=== PATIENT | female | born 1940 | race Caucasian/White ===

== ENCOUNTER 2017-03-14 07:17 | Emergency (ER) | payer OTHER ==
[~2017-03-14] VITALS: Ht 160 cm; Wt 89.0 kg
[~2017-03-14 07:17] MED LIST: ALBU0.63 NEB; ALBU6.7H INH; AMLO10TA2 PO; ATOR40TA16 PO; CALC0.25 PO; CAPT100T PO; CINN500C PO; FERR325T PO; FLUO40CA PO; FURO20TA PO; GABA300C5 PO; IPRAAER INH; LABE200T2 PO; LANTUS2P INJ; LOPE2CAP PO; META800T81 PO; NOVOLOGP2 SQ; PANT40TA3 PO; SPIRCAP INH; ULTR50TA5 PO; [UNRECOGNIZED DRUG - CODE]
[2017-03-14 07:19] VITALS: BP 212/87; PULSE 76; RESP 24; TEMP 98.5; O2SAT 89
--- NOTE | 2017-03-14 07:58 | PD ---
HPI Chief Complaint: GI Complaint Time Seen by Provider: 07:50 Travel History International Travel<30 days: No Contact w/Intl Traveler<30days: No Traveled to known affect area: No History of Present Illness HPI Cyst 77-year-old woman presents to the emergency department cough cold symptoms , chest congestion, and some loose stools. She is a history of COPD and chronic bronchitis. She reports 3 days ago she started feeling poorly with increased nonproductive cough but with increased chest congestion. No significant fevers. She also started having soft stools with a little bit of incontinence with coughing. She otherwise had been feeling generally well and healthy. Review of systems positive for increased shortness of breath, as well as her some increased chest pain occasionally over the past 1 to days that she attributes to her forceful cough. No other complaints. History Past Medical History Narrative Medical Hypertension Diabetes Hyperlipidemia Asthma/COPD GERD History of right breast cancer, status post lumpectomy, no radiation CKD, reportedly stage IV Neuropathy Tetanus Vaccination: < 5 Years Influenza Vaccination: Yes Social History Alcohol Use: No Tobacco Use: No Allergies-Medications (Allergen,Severity, Reaction): Coded Allergies: No Known Allergies (Verified , 03/14/17) Reported Meds & Prescriptions Reported Meds & Active Scripts Active Mucinex DM Maximum Strength (Dextromethorphan-Guaifenesin ER 12 HR) 60-1,200 Mg Tab 1 Tab PO BID PRN Azithromycin 250 Mg Tab 250 Mg PO DAILY 4 Days Deltasone (Prednisone) 20 Mg Tab 40 Mg PO DAILY 10 Days Reported Spiriva Handihaler (Tiotropium Inh) 18 Mcg Cap 18 Mcg INH DAILY 1 capsule = 18 mcg Proair Hfa 8.5 GM Inh (Albuterol Sulfate) 90 Mcg/Act Aer 1 Puff INH Q4H PRN 108 mcg/actuation Loperamide (Loperamide HCl) 2 Mg Cap 2 Mg PO DIRECTED PRN One capsule after each loose stool. Not to exceed 8 capsules per day. Cinnamon 500 Mg Cap 1,000 Mg PO DAILY Once Daily (Multiple Vitamin) 1 Tab Tab Albuterol Neb (Albuterol Sulfate) 0.63 Mg/3 Ml Neb 0.083 Mg NEB Q4H PRN Combivent Respimat Inh (Ipratropium-Albuterol Inh) 20-100 Long-Term/Act Aero 1 Puff INH QID Proventil Hfa 6.7 GM Inh (Albuterol Sulfate) 90 Mcg/Act Aer 3 Puff INH Q6H PRN Calcitriol 0.25 Mcg Cap 0.25 Mcg PO HS Ferrous Sulfate 325 Mg Tab 325 Mg PO DAILY Fluoxetine (Fluoxetine HCl) 40 Mg Cap 40 Cap PO DAILY Gabapentin 300 Mg Cap 300 Mg PO TID Pantoprazole (Pantoprazole Sodium) 40 Mg Tab 40 Mg PO DAILY Atorvastatin (Atorvastatin Calcium) 40 Mg Tab 40 Mg PO HS Novolog Inj (Insulin Aspart) 1,000 Unit/10 Ml Vial 0 SQ DIRECTED Sliding Scale as directed. Lantus Inj (Insulin Glargine) 100 Unit/Ml Inj 47 Units INJ HS Labetalol (Labetalol HCl) 200 Mg Tab 200 Mg PO BID Captopril 100 Mg Tab 100 Mg PO TIDAC Take 1 hr before meals Amlodipine (Amlodipine Besylate) 10 Mg Tab 10 Mg PO DAILY Review of Systems Except as stated in HPI: all other systems reviewed are Neg Physical Exam Narrative GENERAL: Well-appearing 77-year-old woman, no acute distress. SKIN: Focused skin assessment warm/dry. HEAD: Atraumatic. Normocephalic. CARDIOVASCULAR: Regular rate and rhythm. No murmur appreciated. RESPIRATORY: No accessory muscle use. Clear to auscultation. Breath sounds equal bilaterally. GASTROINTESTINAL: Abdomen soft, non-tender, nondistended. Hepatic and splenic margins not palpable. MUSCULOSKELETAL: No obvious deformities. No edema. NEUROLOGICAL: Awake and alert. No obvious cranial nerve deficits. Motor grossly within normal limits. Normal speech. Data Data Last Documented VS Vital Signs Date Time Temp Pulse Resp B/P Pulse Ox O2 Delivery O2 Flow Rate FiO2 03/14/17 09:29 95 Room Air 03/14/17 08:57 70 20 209/93 03/14/17 08:04 21 03/14/17 07:19 98.5 Orders Complete Blood Count With Diff (03/14/17 07:51) Comprehensive Metabolic Panel (03/14/17 07:51) B-Type Natriuretic Peptide (03/14/17 07:51) Troponin I (03/14/17 07:51) Iv Access Insert/Monitor (03/14/17 07:51) Electrocardiogram (03/14/17 07:51) Ecg Monitoring (03/14/17 07:51) Oximetry (03/14/17 07:51) Oxygen Administration (03/14/17 07:51) Chest, Single Ap (03/14/17 07:51) Sodium Chloride 0.9% Flush (Ns Flush) (03/14/17 08:00) Methylprednisolone So Succ Inj (Solumedr (03/14/17 08:00) Albuterol-Ipratropium Neb (Duoneb Neb) (03/14/17 08:00) Azithromycin (Zithromax) (03/14/17 08:00) Amlodipine (Norvasc) (03/14/17 08:45) Captopril (Capoten) (03/14/17 08:45) Labetalol (Trandate) (03/14/17 08:45) Labs Laboratory Tests Test 03/14/17 03/14/17 07:50 09:00 Sodium Level 137 MEQ/L Potassium Level 4.0 MEQ/L Chloride Level 106 MEQ/L Carbon Dioxide Level 23.4 MEQ/L Anion Gap 8 MEQ/L Blood Urea Nitrogen 25 MG/DL Creatinine 2.40 MG/DL Estimat Glomerular Filtration 20 ML/MIN Rate Random Glucose 233 MG/DL Calcium Level 8.4 MG/DL Total Bilirubin 0.6 MG/DL Aspartate Amino Transf 27 U/L (AST/SGOT) Alanine Aminotransferase 25 U/L (ALT/SGPT) Alkaline Phosphatase 107 U/L Troponin I LESS THAN 0.02 NG/ML B-Type Natriuretic Peptide 141 PG/ML Total Protein 6.9 GM/DL Albumin 2.9 GM/DL White Blood Count 13.7 TH/MM3 Red Blood Count 4.10 MIL/MM3 Hemoglobin 11.9 GM/DL Hematocrit 36.3 % Mean Corpuscular Volume 88.6 FL Mean Corpuscular Hemoglobin 28.9 PG Mean Corpuscular Hemoglobin 32.7 % Concent Red Cell Distribution Width 13.7 % Platelet Count 204 TH/MM3 Mean Platelet Volume 8.3 FL Neutrophils (%) (Auto) 85.4 % Lymphocytes (%) (Auto) 7.3 % Monocytes (%) (Auto) 5.9 % Eosinophils (%) (Auto) 0.7 % Basophils (%) (Auto) 0.7 % Neutrophils # (Auto) 11.7 TH/MM3 Lymphocytes # (Auto) 1.0 TH/MM3 Monocytes # (Auto) 0.8 TH/MM3 Eosinophils # (Auto) 0.1 TH/MM3 Basophils # (Auto) 0.1 TH/MM3 CBC Comment DIFF FINAL Differential Comment MDM Medical Decision Making Medical Screen Exam Complete: Yes Emergency Medical Condition: Yes Interpretation(s) My review of EKG: Normal sinus rhythm at a rate of 78, normal axis, normal intervals, anterior precordial Q waves, possible previous anteroseptal NE, no definite evidence of acute ischemia. Compared to previous EKG from October, no significant change. LABS: CBC remarkable for mild leukocytosis. CMP remarkable for elevated BUN and creatinine, slightly worse than previous, glucose 233 Troponin negative BNP 141 Chest x-ray: Pulmonary vascular congestion. Differential Diagnosis COPD exacerbation, pneumonia, URI, other Narrative Course Medical decision making INITIAL: 77-year-old woman who presents to the emergency department complaining of increased cough, chest congestion, shortness of breath, some loose stools suggestive of viral URI with COPD exacerbation. Pneumonia possible. Heart failure, ACS, less likely. We'll check labs, EKG, chest x-ray, treatment with bronchodilators, steroids, antibiotics. Likely discharge. Diagnosis Primary Impression: COPD exacerbation Additional Instructions: Use Mucinex DM as needed for cough. Take prednisone as prescribed. Asked doses due tomorrow. Take azithromycin as prescribed. Next dose is due tomorrow. Continue albuterol inhaler or nebulizer every 4 hours until symptoms resolve. Follow-up with your primary doctor in 1-2 days. Return to the emergency department for any worsening chest pain, trouble breathing, or any other new or worsening symptoms. Med/Other Pt SpecificInfo: Prescription(s) given Scripts Dextromethorphan-Guaifenesin ER 12 HR (Mucinex DM Maximum Strength)60-1,200 Mg Tab1 Tab PO BID PRN (CHEST CONGESTION AND/OR COUGH) #14 TAB Prov:Frank Ibarra MD 03/14/17 Azithromycin 250 Mg [id number] Mg PO DAILY 4 Days Prov:Frank Ibarra MD 03/14/17 Prednisone (Deltasone)20 Mg Tab40 Mg PO DAILY 10 Days Prov:Frank Ibarra MD 03/14/17 Disposition: 01 DISCHARGE HOME Condition: Stable Frank Ibarra MD Mar 14, 2017 07:58
[2017-03-14] MEDS ORDERED: SODIUM CHLORIDE 0.9% FLUSH 10 ML FLUSH IVF PRN (08:00)
[2017-03-14] MEDS ORDERED: AZITHROMYCIN 250 MG TAB PO ONE (08:00)
[2017-03-14] MEDS ORDERED: methylPREDNISolone SOD SUCC 125 MG/2 ML VIAL IVP ONE (08:00)
[2017-03-14] MEDS: RESP: ALBUTEROL 2.5 MG/IPRATROPIUM 0.5 MG NEB (SCH) INH ×2 (08:01→08:02)
[2017-03-14] MEDS ORDERED: ALBUAER3 INH (08:03)
[2017-03-14] MEDS ORDERED: SPIRCAP INH (08:03)
[2017-03-14 08:04] VITALS: O2SAT 92
[2017-03-14 08:19] VITALS: BP 221/95; PULSE 81; RESP 20; O2SAT 92
[2017-03-14] MEDS ORDERED: AZIT250T3 PO (08:19)
[2017-03-14] MEDS ORDERED: DEXT1TAB18 PO (08:19)
[2017-03-14] MEDS ORDERED: PRED-503 PO (08:19)
[2017-03-14 08:24] LABS: ALT (GPT) 25 U/L (10-53); ANION GAP 8 MEQ/L (5-15); AST (GOT) 27 U/L (15-37); BICARBONATE 23.4 MEQ/L (21.0-32.0); BLOOD UREA NITROGEN 25 MG/DL (7-18); CHLORIDE 106 MEQ/L (98-107); GLOMERULAR FILTRATION RATE 20 ML/MIN (>89); SODIUM (NA) 137 MEQ/L (136-145)
[2017-03-14 08:29] LABS: ALKALINE PHOSPHATASE 107 U/L (45-117); TOTAL BILIRUBIN ADULT 0.6 MG/DL (0.2-1.0)
--- NOTE | 2017-03-14 08:44 | RADRPT ---
EXAM DATE/TIME: 03/14/2017 07:57 [facility] COMPARISON: CHEST SINGLE AP, July 26, 2014, 9:13. CHEST SINGLE AP, November 22, 2016, 15:22. INDICATIONS : Shortness of breath, coughing, diarrhea. MEDICAL HISTORY : Hypertension. Diabetes mellitus type II. Myocardial infarction. COPD. Asthma. Breast Cancer. SURGICAL HISTORY : Mastectomy, right. ENCOUNTER: Initial ACUITY: 4 - 6 days PAIN SCORE: 5/10 LOCATION: Bilateral lower chest and midline. FINDINGS: The heart is enlarged. The pulmonary vascular pattern is normal. The lungs are unchanged compared t o the previous examination. Degenerative changes are noted throughout the thoracic spine. CONCLUSION: 1. Cardiomegaly. 2. No significant change in the appearance of the lungs compared to the previous examination. 3. No acute focal pulmonary infiltrate or pulmonary vascular congestion. Vipin Zimmer MD on March 14, 2017 at 8:24 Board Certified Radiologist. This report was verified electronically.
[2017-03-14] MEDS ORDERED: LABETALOL HCL 200 MG TAB PO ONE (08:45)
[2017-03-14] MEDS ORDERED: CAPTOPRIL 50 MG TAB PO ONE (08:45)
[2017-03-14 08:57] VITALS: BP 209/93; PULSE 70; RESP 20; O2SAT 95
[2017-03-14 09:14] LABS: AUTOMATED NEUTROPHIL # 11.7 TH/MM3 (1.8-7.7); BASOPHIL # 0.1 TH/MM3 (0-0.2); BASOPHIL % 0.7 % (0.0-2.0); EOSINOPHIL # 0.1 TH/MM3 (0-0.4); EOSINOPHIL % 0.7 % (0.0-4.0); HEMATOCRIT 36.3 % (35.0-46.0); HEMO FLAGS DIFF FINAL; LYMPH % 7.3 % (9.0-44.0); MEAN CELL VOLUME 88.6 FL (80.0-100.0); MEAN CORPUSCULAR HEMOGLOBIN 28.9 PG (27.0-34.0); MEAN CORPUSCULAR HGB CONC 32.7 % (32.0-36.0); MONO % 5.9 % (0.0-8.0); NEUT % 85.4 % (16.0-70.0); PLATELET COUNT 204 TH/MM3 (150-450); RED CELL DISTRIBUTION WIDTH 13.7 % (11.6-17.2); WHITE BLOOD COUNT 13.7 TH/MM3 (4.0-11.0)
[2017-03-14 09:29] VITALS: BP 176/95; PULSE 75; O2SAT 95
--- NOTE | 2017-03-14 14:50 | EKG ---
Date Performed: 03/14/2017 Time Performed: 08:30:39 PTAGE: 77 years EKG: Sinus rhythm ANTEROSEPTAL MYOCARDIAL INFARCTION ABNORMAL ECG NO PREVIOUS TRACING DOCTOR: Petros Forte Interpretating Date/Time 03/14/2017 14:48:53
== END 2017-03-14 09:41 | disposition home or self-care (01) ==
LOC: NEPC 07:17
DX: J44.1 Chronic obstructive pulmonary disease with (acute) exacerbation (principal); R06.02 Shortness of breath; I12.9 Hypertensive chronic kidney disease with stage 1 through stage 4 chronic kidney disease, or unspecified chronic kidney disease; E11.9 Type 2 diabetes mellitus without complications; E78.5 Hyperlipidemia, unspecified; K21.9 Gastro-esophageal reflux disease without esophagitis; R94.31 Abnormal electrocardiogram [ECG] [EKG]
CPT/HCPCS: 71010; 80053; 83880; 84484; 85025; 93005; 94640; 94664; 96374; 99285; J2930

== ENCOUNTER → 2017-05-04 | Outpatient (CLI) | payer OTHER ==
[~2017-05-04] MED LIST changes: +ALBUAER3 INH; +AZIT250T3 PO; +DEXT1TAB18 PO; -FURO20TA PO; -META800T81 PO; +PRED-503 PO; -ULTR50TA5 PO
[2017-05-04 11:41] LABS: BLOOD GAS BASE EXCESS -2.7 mmol/L (-2-2); BLOOD GAS CARBOXYHEMOGLOBIN 1.6 % (0-4); BLOOD GAS HCO3 22 mmol/L (22-26); BLOOD GAS O2 HGB SATURATION 93 % (90-100); BLOOD GAS OXYGEN CONTENT 16.3 Vol % (12.0-20.0); BLOOD GAS PCO2 38 mmHg (38-42); BLOOD GAS PO2 79 mmHg (61-120); BLOOD GAS TOTAL HGB 12.4 G/DL (12.0-16.0); CRITICAL VALUE NO; DRAW SITE LT RADIAL; FIO2 21 %; NUMBER OF ARTERIAL PUNCTURES 1; STAT NO; TEMP CORR TO 98.6; ULNAR PULSE PRESENT
--- NOTE | 2017-05-06 08:19 | RSPPFT ---
DATE OF PROCEDURE: 05/04/17 COMMENTS: Spirometry shows FVC of 1.4 at 53% of predicted, FEV1 of 0.9 at 50%, FEV1/FVC ratio is decreased. Flow is decreased at FEF 25-75. There is no response after bronchodilator treatment. Lung volumes show residual volume is increased. TLC is normal. Diffusion capacity is severely decreased. Flow volume loop indicates an obstructive pattern. Room air arterial blood gases show pH of 7.3, PCO2 of 35, PO2 of 79, BiCarb of 22 and O2 Saturation at 93%. IMPRESSION: 1. Moderately severe obstructive lung disease. 2. No response after bronchodilator treatment. 3. Lung volumes show hyperinflation. 4. Severe loss of diffusion capacity. 5. Blood gases show normal oxygenation on room air.
== END ==
LOC: HRSP 10:33
PROVIDERS: ATTEND Specialist
DX: J44.9 Chronic obstructive pulmonary disease, unspecified (principal)
CPT/HCPCS: 36600; 82805; 94060; 94726; 94729

== ENCOUNTER 2017-07-05 12:37 | Emergency (ER) | payer OTHER ==
[~2017-07-05] VITALS: Ht 160 cm; Wt 81.5 kg
[2017-07-05 12:39] VITALS: BP 136/74; PULSE 76; RESP 16; TEMP 98.6; O2SAT 95
--- NOTE | 2017-07-05 12:48 | PD ---
Physical Exam Time Seen by Provider: 12:46 Narrative 77 y/o female here for evaluation of confusion, dizziness, lightheadedness which improved after lying down a few hours captain cannery tender. Still sensation of generalized fatigue. Vital signs reviewed. Seen at triage desk. Awaiting bed placement. Data Data Last Documented VS Vital Signs Date Time Temp Pulse Resp B/P Pulse Ox O2 Delivery O2 Flow Rate FiO2 07/05/17 12:39 98.6 76 16 136/74 95 MDM Medical Record Reviewed: Yes Supervised Visit with ALETA: No Sher Cavazos Jul 05, 2017 12:48
[2017-07-05 14:06] LABS: AUTOMATED NEUTROPHIL # 9.3 TH/MM3 (1.8-7.7); BASOPHIL # 0.1 TH/MM3 (0-0.2); BASOPHIL % 0.9 % (0.0-2.0); EOSINOPHIL # 0.4 TH/MM3 (0-0.4); EOSINOPHIL % 3.7 % (0.0-4.0); HEMATOCRIT 33.8 % (35.0-46.0); HEMO FLAGS DIFF FINAL; LYMPH % 8.3 % (9.0-44.0); MEAN CELL VOLUME 89.1 FL (80.0-100.0); MEAN CORPUSCULAR HEMOGLOBIN 29.4 PG (27.0-34.0); MONO % 7.5 % (0.0-8.0); NEUT % 79.6 % (16.0-70.0); PLATELET COUNT 283 TH/MM3 (150-450); RED BLOOD COUNT 3.79 MIL/MM3 (4.00-5.30); RED CELL DISTRIBUTION WIDTH 13.7 % (11.6-17.2); WHITE BLOOD COUNT 11.7 TH/MM3 (4.0-11.0)
[2017-07-05 14:15] LABS: APTT (PATIENT) 24.8 SEC (24.3-30.1); INTERNATIONAL NORMALIZED RATIO 0.9 RATIO; PROTHROMBIN TIME - PATIENT 10.4 SEC (9.8-11.6)
[2017-07-05 14:26] LABS: ALT (GPT) 20 U/L (10-53); ANION GAP 8 MEQ/L (5-15); AST (GOT) 14 U/L (15-37); BICARBONATE 25.8 MEQ/L (21.0-32.0); BLOOD UREA NITROGEN 27 MG/DL (7-18); CHLORIDE 109 MEQ/L (98-107); GLOMERULAR FILTRATION RATE 18 ML/MIN (>89); POTASSIUM 3.7 MEQ/L (3.5-5.1); SODIUM (NA) 143 MEQ/L (136-145)
[2017-07-05 14:30] LABS: ALKALINE PHOSPHATASE 105 U/L (45-117); TOTAL BILIRUBIN ADULT 0.4 MG/DL (0.2-1.0)
[2017-07-05 14:39] VITALS: BP 148/66; PULSE 73; RESP 20; O2SAT 96
--- NOTE | 2017-07-05 14:40 | PD ---
HPI Chief Complaint: Altered Mental Status Time Seen by Provider: 14:20 Travel History International Travel<30 days: No Contact w/Intl Traveler<30days: No History of Present Illness HPI 77yo F with PMH of HTN, DM, breast CA s/p mastectomy and cancer free here with c /o period of confusion that lasted 10 minutes today. States she was going through her bills at 11:30am today and was on the phone with automated questions and could not remember the answers to the questions. States she felt confused. She then had generalized weakness and her cleaning lady said she looked pale and lied her down on the couch. Pt is feeling better but still feels generalized weakness. No longer feels confused. Denies any fever, chest pain, sob, visual changes, n/v, abdominal pain, focal weakness or numbness. Never had a stroke. PFSH Past Medical History Asthma: Yes Depression: Yes Cancer: Yes (RT BREAST) Cardiovascular Problems: Yes High Cholesterol: Yes Chemotherapy: No COPD: Yes Diabetes: Yes Patient Takes Glucophage: No Diminished Hearing: No GERD: Yes Genitourinary: Yes (KIDNEY PROBLEM) Hypertension: Yes Insomnia: Yes Neurologic: Yes (BILAT FEET NEUROPATHY) Respiratory: Yes (COPD) Immunizations Current: Yes Myocardial Infarction: Yes Sleep Apnea: Yes ?: Not Past Surgical History Gynecologic Surgery: Yes (RT MASTECTOMY-BREAST CA) Hysterectomy: Yes Mastectomy: Yes (rt) Tonsillectomy: Yes Social History Alcohol Use: No Tobacco Use: No Substance Use: No Allergies-Medications (Allergen,Severity, Reaction): Coded Allergies: No Known Allergies (Verified , 07/05/17) Reported Meds & Prescriptions Reported Meds & Active Scripts Active Macrobid (Nitrofurantoin Monoh/Nitrofur Macro) 100 Mg Cap 100 Mg PO BID 7 Days Reported Anoro Ellipta Inh (Umeclidinium/Vilanterol) 62.5-25 Mcg/Act Aero 1 Puff INH DAILY [insulin unk] 49 HS Loperamide (Loperamide HCl) 2 Mg Cap 2 Mg PO DIRECTED PRN One capsule after each loose stool. Not to exceed 8 capsules per day. Once Daily (Multiple Vitamin) 1 Tab Tab Calcitriol 0.25 Mcg Cap 0.25 Mcg PO HS Ferrous Sulfate 325 Mg Tab 325 Mg PO DAILY Fluoxetine (Fluoxetine HCl) 40 Mg Cap 40 Cap PO DAILY Gabapentin 300 Mg Cap 300 Mg PO TID Pantoprazole (Pantoprazole Sodium) 40 Mg Tab 40 Mg PO DAILY Atorvastatin (Atorvastatin Calcium) 40 Mg Tab 40 Mg PO HS Novolog Inj (Insulin Aspart) 1,000 Unit/10 Ml Vial 0 SQ DIRECTED Sliding Scale as directed. Labetalol (Labetalol HCl) 200 Mg Tab 200 Mg PO BID Captopril 100 Mg Tab 100 Mg PO TIDAC Take 1 hr before meals Amlodipine (Amlodipine Besylate) 10 Mg Tab 10 Mg PO DAILY Review of Systems Except as stated in HPI: all other systems reviewed are Neg Physical Exam Narrative GEN: 77yo F not in distress. HEAD: Normocephalic, atraumatic. EYE: Pupils reactive and equal to light bilaterally. NECK: Trachea midline. No JVD. CV: S1, S2. No murmurs. Lungs: CTA B/L, equal breath sounds. Abd: soft, NT/ND. No rebound tenderness or guarding. Ext: No edema. No calf tenderness. NEURO: CNII-XII grossly intact. Muscles strength 5/5 in all extremities. Sensations intact. Data Data Last Documented VS Vital Signs Date Time Temp Pulse Resp B/P Pulse Ox O2 Delivery O2 Flow Rate FiO2 07/05/17 16:34 56 18 169/79 95 Room Air 07/05/17 12:[address] Brain W/O Iv Contrast(Rout) (07/05/17 ) Electrocardiogram (07/05/17 13:07) Prothrombin Time / Inr (Pt) (07/05/17 13:07) Act Partial Throm Time (Ptt) (07/05/17 13:07) Complete Blood Count With Diff (07/05/17 13:07) Comprehensive Metabolic Panel (07/05/17 13:07) Creatine Kinase (Cpk) (07/05/17 13:07) Troponin I (07/05/17 13:07) Urinalysis - C+S If Indicated (07/05/17 13:07) Urine Culture (07/05/17 16:30) Ceftriaxone Inj (Rocephin Inj) (07/05/17 17:15) Nitrofurantoin Monohyd Macrocr (Macrobid (07/05/17 17:30) Labs Laboratory Tests Test 07/05/17 07/05/17 13:40 16:30 Prothrombin Time 10.4 SEC Prothromb Time International 0.9 RATIO Ratio Activated Partial 24.8 SEC Thromboplast Time Sodium Level 143 MEQ/L Potassium Level 3.7 MEQ/L Chloride Level 109 MEQ/L Carbon Dioxide Level 25.8 MEQ/L Anion Gap 8 MEQ/L Blood Urea Nitrogen 27 MG/DL Creatinine 2.57 MG/DL Estimat Glomerular Filtration 18 ML/MIN Rate Random Glucose 72 MG/DL Calcium Level 8.7 MG/DL Total Bilirubin 0.4 MG/DL Aspartate Amino Transf 14 U/L (AST/SGOT) Alanine Aminotransferase 20 U/L (ALT/SGPT) Alkaline Phosphatase 105 U/L Total Creatine Kinase 70 U/L Troponin I LESS THAN 0.02 NG/ML Total Protein 6.2 GM/DL Albumin 2.8 GM/DL White Blood Count 11.7 TH/MM3 Red Blood Count 3.79 MIL/MM3 Hemoglobin 11.2 GM/DL Hematocrit 33.8 % Mean Corpuscular Volume 89.1 FL Mean Corpuscular Hemoglobin 29.4 PG Mean Corpuscular Hemoglobin 33.0 % Concent Red Cell Distribution Width 13.7 % Platelet Count 283 TH/MM3 Mean Platelet Volume 8.0 FL Neutrophils (%) (Auto) 79.6 % Lymphocytes (%) (Auto) 8.3 % Monocytes (%) (Auto) 7.5 % Eosinophils (%) (Auto) 3.7 % Basophils (%) (Auto) 0.9 % Neutrophils # (Auto) 9.3 TH/MM3 Lymphocytes # (Auto) 1.0 TH/MM3 Monocytes # (Auto) 0.9 TH/MM3 Eosinophils # (Auto) 0.4 TH/MM3 Basophils # (Auto) 0.1 TH/MM3 CBC Comment DIFF FINAL Differential Comment Urine Color YELLOW Urine Turbidity CLOUDY Urine pH 6.0 Urine Specific [place] 1.018 Urine Protein GREATER THAN 600 mg/dL Urine Glucose (UA) TRACE mg/dL Urine Ketones 10 mg/dL Urine Occult Blood MOD Urine Nitrite NEG Urine Bilirubin NEG Urine Urobilinogen LESS THAN 2.0 MG/DL Urine Leukocyte Esterase LARGE Urine RBC 114 /hpf Urine WBC /hpf Urine Squamous Epithelial 12 /hpf Cells Urine Transitional Epithelial 1 /hpf Cells Urine Amorphous Sediment RARE Urine Bacteria MANY /hpf Urine Mucus FEW /lpf Microscopic Urinalysis Comment CATH-CULTURE IND MDM Medical Decision Making Medical Screen Exam Complete: Yes Emergency Medical Condition: Yes Differential Diagnosis dementia vs. delirium vs. UTI Narrative Course 77yo F with c/o episode of confusion for 10 minutes. Pt has no focal weakness or numbness. Labs reviewed, WBC 11.7. H/H is 11.2/33.8. Creatinine elevated at 2.57 but pt has CKD stage 4 and this is her normal. Troponin negative. Glucose on the lower end at 72. Pt is drinking normally with no abdominal pain , nausea or vomiting. UA showed large leukocyte. Pt tolerating PO and does not want an IV. Pt given macrobid 100mg PO. CT brain showed no foal or acute intracranial hemorrhage. Pt is back to her normal mental status. No longer feels confused. States she feels better and wants to go home. Return precautions given. Diagnosis Primary Impression: UTI (urinary tract infection) Qualified Code: N39.0 - Urinary tract infection with hematuria, site unspecified Patient Instructions: General Instructions Departure Forms: Tests/Procedures Additional Instructions: Please follow up with your PMD in 3-7 days. Return to the ED if symptoms worsen. Med/Other Pt SpecificInfo: Prescription(s) given Scripts Nitrofurantoin Monohydrate Macrocrystals (Macrobid)100 Mg [id number] Mg PO BID 7 Days Ref 0 Prov:Georgiana Leiva DO 07/05/17 Disposition: 01 DISCHARGE HOME Condition: Stable Georgiana Leiva DO Jul 05, 2017 14:40
[2017-07-05 14:42] LABS: CREATINE KINASE 70 U/L (26-192)
[2017-07-05] MEDS ORDERED: UMEC1AER INH (14:48)
[2017-07-05] MEDS ORDERED: NIFE10CA PO (14:48)
[2017-07-05] MEDS ORDERED: [UNRECOGNIZED DRUG - REMARK] (14:48)
--- NOTE | 2017-07-05 15:07 | RADRPT ---
EXAM DATE/TIME: 07/05/2017 14:50 [facility] COMPARISON: CT BRAIN W/O CONTRAST, November 12, 2015, 12:15. INDICATIONS : Dizziness, confusion and general weakness. RADIATION DOSE: 56.77 CTDIvol (mGy) MEDICAL HISTORY : Chronic obstructive pulmonary disease. Carcinoma, breast. Diabetes mellitus type 2.Hypertension. SURGICAL HISTORY : Hysterectomy. ENCOUNTER: Initial ACUITY: 1 day PAIN SCALE: 0/10 LOCATION: cranial TECHNIQUE: Multiple contiguous axial images were obtained of the head. Using automated exposure control and adj ustment of the mA and/or kV according to patient size, radiation dose was kept as low as reasonably a chievable to obtain optimal diagnostic quality images. DICOM format image data is available electro nically for review and comparison. FINDINGS: CEREBRUM: The ventricles are normal for age. No evidence of midline shift, mass lesion, hemorrhage or acute in farction. No extra-axial fluid collections are seen. Small stable left lacunar infarct. POSTERIOR FOSSA: The cerebellum and brainstem are intact. The 4th ventricle is midline. The cerebellopontine angle i s unremarkable. EXTRACRANIAL: The visualized portion of the orbits is intact. SKULL: The calvaria is intact. No evidence of skull fracture. CONCLUSION: 1. Stable CT scan of the brain compared to 2014. 2. No focal or acute intracranial hemorrhage. Dewayne Small MD on July 05, 2017 at 15:04 Board Certified Radiologist. This report was verified electronically.
[2017-07-05 16:34] VITALS: BP 169/79; PULSE 56; RESP 18; O2SAT 95
[2017-07-05 16:41] LABS: BACTERIA, URINE MANY /hpf; BLOOD, URINE MOD (NEG); GLUCOSE,URINE TRACE mg/dL (NEG); KETONE, URINE 10 mg/dL (NEG); MUCUS URINE FEW /lpf (OCC); NITRITE,URINE NEG (NEG); SQUAMOUS EPITHELIAL CELL URINE 12 /hpf (0-5); TRANSITIONAL EPI CELLS, URINE 1 /hpf; URINE COLOR YELLOW (YELLW/STRAW)
[2017-07-05 16:42] LABS: COMMENT (UR) CATH-CULTURE IND; CULTURE IF INDICATED CATH CULTURE IND
[2017-07-05] MEDS ORDERED: cefTRIAXone INJ 1,000 MG in SODIUM CHLORIDE 0.9% INJ 100 ML IV ONE (17:15)
[2017-07-05] MEDS ORDERED: MACR100C2 PO (17:26)
[2017-07-05] MEDS ORDERED: NITROFURANTOIN MONOHYD MACROCR 100 MG CAP PO ONE (17:30)
--- NOTE | 2017-07-06 08:34 | EKG ---
Date Performed: 07/05/2017 Time Performed: 13:30:06 PTAGE: 77 years EKG: Sinus rhythm ANTEROSEPTAL MYOCARDIAL INFARCTION ABNORMAL ECG PREVIOUS TRACING : 03/14/2017 08.30 DOCTOR: Barry Nava Interpretating Date/Time 07/06/2017 08:29:29
== END 2017-07-05 18:36 | disposition home or self-care (01) ==
LOC: NEPC 12:37
DX: N39.0 Urinary tract infection, site not specified (principal); B96.1 Klebsiella pneumoniae [K. pneumoniae] as the cause of diseases classified elsewhere; E11.22 Type 2 diabetes mellitus with diabetic chronic kidney disease; I12.9 Hypertensive chronic kidney disease with stage 1 through stage 4 chronic kidney disease, or unspecified chronic kidney disease; N18.4 Chronic kidney disease, stage 4 (severe); R94.31 Abnormal electrocardiogram [ECG] [EKG]; R41.0 Disorientation, unspecified; R53.1 Weakness; E11.42 Type 2 diabetes mellitus with diabetic polyneuropathy
CPT/HCPCS: 70450; 80053; 81001; 82550; 84484; 85025; 85610; 85730; 87077; 87086; 87186; 93005; 99284

== ENCOUNTER 2017-07-21 08:40 | Emergency (ER) | payer OTHER ==
[~2017-07-21] VITALS: Ht 160 cm; Wt 130.0 kg
[~2017-07-21 08:40] MED LIST changes: -ALBU0.63 NEB; -ALBU6.7H INH; -ALBUAER3 INH; -AZIT250T3 PO; -CINN500C PO; -DEXT1TAB18 PO; -IPRAAER INH; -LANTUS2P INJ; +MACR100C2 PO; -PRED-503 PO; -SPIRCAP INH; +UMEC1AER INH; +[UNRECOGNIZED DRUG - REMARK]
[2017-07-21 08:56] VITALS: BP 185/79; PULSE 64; RESP 17; TEMP 98.4; O2SAT 95
[2017-07-21] MEDS ORDERED: MORPHINE SULFATE 8 MG/ML INJ IV PUSH ONE (09:45)
[2017-07-21] MEDS ORDERED: SODIUM CHLORIDE 0.9% FLUSH 10 ML FLUSH IV FLUSH PRN (09:45)
[2017-07-21] MEDS ORDERED: ONDANSETRON HCL 4 MG/2 ML VIAL IVP ONE (09:45)
[2017-07-21 09:47] VITALS: BP 205/96; PULSE 63; RESP 18; O2SAT 93
[2017-07-21] MEDS ORDERED: LEVEMIR SQ (09:47)
[2017-07-21] MEDS ORDERED: VENTAER INH (09:47)
[2017-07-21] MEDS ORDERED: ONE-TAB PO (09:47)
[2017-07-21] MEDS ORDERED: FERR325T8 PO (09:47)
[2017-07-21] MEDS ORDERED: AZIT250T3 PO (09:47)
[2017-07-21 10:32] LABS: BACTERIA, URINE FEW /hpf; BLOOD, URINE LARGE (NEG); GLUCOSE,URINE 300 mg/dL (NEG); KETONE, URINE 10 mg/dL (NEG); MUCUS URINE FEW /lpf (OCC); NITRITE,URINE NEG (NEG); SQUAMOUS EPITHELIAL CELL URINE 5 /hpf (0-5); TRANSITIONAL EPI CELLS, URINE <1 /hpf; URINE COLOR YELLOW (YELLW/STRAW)
[2017-07-21 10:36] LABS: COMMENT (UR) CULTURE INDICATED; CULTURE IF INDICATED CULTURE INDICATED
[2017-07-21 10:38] LABS: AUTOMATED NEUTROPHIL # 11.6 TH/MM3 (1.8-7.7); BASOPHIL # 0.1 TH/MM3 (0-0.2); EOSINOPHIL # 0.1 TH/MM3 (0-0.4); HEMO FLAGS DIFF FINAL; LYMPH % 4.8 % (9.0-44.0); LYMPHOCYTE # 0.6 TH/MM3 (1.0-4.8); MEAN CELL VOLUME 90.3 FL (80.0-100.0); MEAN CORPUSCULAR HEMOGLOBIN 29.6 PG (27.0-34.0); MEAN CORPUSCULAR HGB CONC 32.8 % (32.0-36.0); MONO % 5.1 % (0.0-8.0); NEUT % 88.1 % (16.0-70.0); PLATELET COUNT 261 TH/MM3 (150-450); RED BLOOD COUNT 3.65 MIL/MM3 (4.00-5.30); WHITE BLOOD COUNT 13.2 TH/MM3 (4.0-11.0)
[2017-07-21 10:47] LABS: ALT (GPT) 19 U/L (10-53)
[2017-07-21 10:50] LABS: ALKALINE PHOSPHATASE 115 U/L (45-117); TOTAL BILIRUBIN ADULT 0.9 MG/DL (0.2-1.0)
[2017-07-21 10:53] LABS: ANION GAP 8 MEQ/L (5-15); AST (GOT) 20 U/L (15-37); BICARBONATE 23.6 MEQ/L (21.0-32.0); BLOOD UREA NITROGEN 37 MG/DL (7-18); CHLORIDE 106 MEQ/L (98-107); GLOMERULAR FILTRATION RATE 17 ML/MIN (>89); SODIUM (NA) 138 MEQ/L (136-145)
[2017-07-21 10:56] LABS: POTASSIUM 4.4 MEQ/L (3.5-5.1)
--- NOTE | 2017-07-21 12:51 | PD ---
HPI Chief Complaint: Abdominal Pain Time Seen by Provider: 09:09 Travel History International Travel<30 days: No Contact w/Intl Traveler<30days: No Traveled to known affect area: No History of Present Illness HPI Patient is 77 years old. She arrives complaining of feeling a sense of generalized sickness for 2 weeks or so. She was treated for urinary tract infection and reports improvement thereafter. Her pain is in the lower abdomen. She reports nausea and occasional vomiting. She reports chest pain and back pain. She reports sense of generalized fatigue. She reports sense of bloating throughout the abdomen, positive flatus. she's had no fever. PFSH Past Medical History Asthma: Yes Depression: Yes Cancer: Yes (RT BREAST) Cardiovascular Problems: Yes High Cholesterol: Yes Chemotherapy: No COPD: Yes Diabetes: Yes Patient Takes Glucophage: No Diminished Hearing: No GERD: Yes Genitourinary: Yes (KIDNEY PROBLEM) Hypertension: Yes Insomnia: Yes Neurologic: Yes (BILAT FEET NEUROPATHY) Respiratory: Yes (COPD) Immunizations Current: Yes Myocardial Infarction: Yes Sleep Apnea: Yes Tetanus Vaccination: < 5 Years Influenza Vaccination: Yes Past Surgical History Gynecologic Surgery: Yes (RT MASTECTOMY-BREAST CA) Hysterectomy: Yes Mastectomy: Yes (rt) Tonsillectomy: Yes Social History Alcohol Use: No Tobacco Use: No Substance Use: No Allergies-Medications (Allergen,Severity, Reaction): Coded Allergies: No Known Allergies (Verified , 07/21/17) Reported Meds & Prescriptions Reported Meds & Active Scripts Active Bactrim DS (Sulfamethoxazole-Trimethoprim) 800-160 Mg Tab 1 Tab PO BID Reported Azithromycin 250 Mg Tab 250 Mg PO DIRECTED Take 2 tabs (500 mg) on day 1 then 1 tab daily x 4 days. One-A-Day Essential (Multiple Vitamin) 1 Tab 1 Tab PO DAILY Ferrous Sulfate 325 Mg (65 Mg Iron) Tablet 325 Mg PO BIDPC Levemir Inj (Insulin Detemir) 1,000 unit/ 10 ML Vial 10 Units SQ AC BREAKFAST Do not mix with any other Insulin. Ventolin Hfa 18 GM Inh (Albuterol Sulfate) 90 Mcg/Act Aer 2 Puff INH Q4H PRN Anoro Ellipta Inh (Umeclidinium/Vilanterol) 62.5-25 Mcg/Act Aero 1 Puff INH DAILY Loperamide (Loperamide HCl) 2 Mg Cap 2 Mg PO DIRECTED PRN One capsule after each loose stool. Not to exceed 8 capsules per day. Calcitriol 0.25 Mcg Cap 0.25 Mcg PO HS Fluoxetine (Fluoxetine HCl) 40 Mg Cap 40 Cap PO DAILY Gabapentin 300 Mg Cap 300 Mg PO TID Pantoprazole (Pantoprazole Sodium) 40 Mg Tab 40 Mg PO DAILY Atorvastatin (Atorvastatin Calcium) 40 Mg Tab 80 Mg PO HS Novolog Inj (Insulin Aspart) 1,000 Unit/10 Ml Vial 0 SQ DIRECTED Sliding Scale as directed. Labetalol (Labetalol HCl) 200 Mg Tab 300 Mg PO BID Captopril 100 Mg Tab 100 Mg PO TIDAC Take 1 hr before meals Amlodipine (Amlodipine Besylate) 10 Mg Tab 10 Mg PO DAILY Review of Systems Except as stated in HPI: all other systems reviewed are Neg Physical Exam Narrative GENERAL: 77-year-old female well-nourished well-developed mild distress SKIN: Focused skin assessment warm/dry. HEAD: Atraumatic. Normocephalic. EYES: Pupils equal and round. No scleral icterus. No injection or drainage. ENT: No nasal bleeding or discharge. Mucous membranes pink and moist. NECK: Trachea midline. No JVD. CARDIOVASCULAR: Regular rate and rhythm. No murmur appreciated. RESPIRATORY: No accessory muscle use. Clear to auscultation. Breath sounds equal bilaterally. GASTROINTESTINAL: Soft. There is no focus of tenderness MUSCULOSKELETAL: No obvious deformities. No clubbing. No cyanosis. No edema. NEUROLOGICAL: Awake and alert. No obvious cranial nerve deficits. Motor grossly within normal limits. Normal speech. PSYCHIATRIC: Appropriate mood and affect; insight and judgment normal. Data Data Last Documented VS Vital Signs Date Time Temp Pulse Resp B/P (MAP) Pulse Ox O2 Delivery O2 Flow Rate FiO2 07/21/17 13:03 07/21/17 13:02 65 18 93 Room Air 07/21/17 08:56 98.4 Repeat blood pressure 115/66 Orders Orders Complete Blood Count With Diff (07/21/17 09:45) Comprehensive Metabolic Panel (07/21/17 09:45) Lipase (07/21/17 09:45) Urinalysis - C+S If Indicated (07/21/17 09:45) Iv Access Insert/Monitor (07/21/17 09:45) Ecg Monitoring (07/21/17 09:45) Oximetry (07/21/17 09:45) Ondansetron Inj (Zofran Inj) (07/21/17 09:45) Sodium Chloride 0.9% Flush (Ns Flush) (07/21/17 09:45) Morphine Inj (Morphine Inj) (07/21/17 09:45) Urine Culture (07/21/17 09:50) Labs Laboratory Tests Test 07/21/17 09:50 07/21/17 09:55 Urine Color YELLOW Urine Turbidity HAZY Urine pH 6.0 Urine Specific [place] 1.021 Urine Protein GREATER THAN 600 mg/dL Urine Glucose (UA) 300 mg/dL Urine Ketones 10 mg/dL Urine Occult Blood LARGE Urine Nitrite NEG Urine Bilirubin NEG Urine Urobilinogen LESS THAN 2.0 MG/DL Urine Leukocyte Esterase NEG Urine RBC /hpf Urine WBC 13 /hpf Urine Squamous Epithelial Cells 5 /hpf Urine Transitional Epithelial Cells <1 /hpf Urine Bacteria FEW /hpf Urine Mucus FEW /lpf Microscopic Urinalysis Comment CULTURE INDICATED White Blood Count 13.2 TH/MM3 Red Blood Count 3.65 MIL/MM3 Hemoglobin 10.8 GM/DL Hematocrit 33.0 % Mean Corpuscular Volume 90.3 FL Mean Corpuscular Hemoglobin 29.6 PG Mean Corpuscular Hemoglobin Concent 32.8 % Red Cell Distribution Width 13.0 % Platelet Count 261 TH/MM3 Mean Platelet Volume 8.7 FL Neutrophils (%) (Auto) 88.1 % Lymphocytes (%) (Auto) 4.8 % Monocytes (%) (Auto) 5.1 % Eosinophils (%) (Auto) 1.0 % Basophils (%) (Auto) 1.0 % Neutrophils # (Auto) 11.6 TH/MM3 Lymphocytes # (Auto) 0.6 TH/MM3 Monocytes # (Auto) 0.7 TH/MM3 Eosinophils # (Auto) 0.1 TH/MM3 Basophils # (Auto) 0.1 TH/MM3 CBC Comment DIFF FINAL Differential Comment Blood Urea Nitrogen 37 MG/DL Creatinine 2.69 MG/DL Random Glucose 226 MG/DL Total Protein 6.7 GM/DL Albumin 2.8 GM/DL Calcium Level 8.7 MG/DL Alkaline Phosphatase 115 U/L Aspartate Amino Transf (AST/SGOT) 20 U/L Alanine Aminotransferase (ALT/SGPT) 19 U/L Total Bilirubin 0.9 MG/DL Sodium Level 138 MEQ/L Potassium Level 4.4 MEQ/L Chloride Level 106 MEQ/L Carbon Dioxide Level 23.6 MEQ/L Anion Gap 8 MEQ/L Estimat Glomerular Filtration Rate 17 ML/MIN Lipase 110 U/L [facility] Medical Decision Making Medical Screen Exam Complete: Yes Emergency Medical Condition: Yes Medical Record Reviewed: Yes Differential Diagnosis Constipation, Gastritis, Acute Cholecystitis, Biliary Colic, Pancreatitis, N[place] , Hepatitis, Bowel Obstruction, Cystitis, Mesenteric Ischemia, AAA, Appendicitis , Renal Stone/Hydronephrosis, GERD, perforated viscous Narrative Course CBC & BMP Diagram 07/21/17 09:55 Total Protein 6.7, Albumin 2.8 L, Calcium Level 8.7, Alkaline Phosphatase 115, Aspartate Amino Transf (AST/SGOT) 20, Alanine Aminotransferase (ALT/SGPT) 19, Total Bilirubin 0.9 Renal sufficiency stable Lipase normal Urinalysis reveals UTI The patient is resting comfortably and feels better, is alert and in no distress. The patients results and examination findings were discussed. The repeat examination is unremarkable and benign. The history, exam, diagnostic testing, and current condition do not suggest any significant pathology to warrant further testing, continued ED treatment, admission, or surgical evaluation at this point. The vital signs have been stable. The patient does not have uncontrollable pain, intractable vomiting, or other significant symptoms. The patient's condition is stable and appropriate for discharge. The patient will pursue further outpatient evaluation with a primary care physician or other designated or consulting physician as indicated in the discharge instructions. The patient expressed understanding and was agreeable with this plan. Diagnosis Primary Impression: Abdominal pain Qualified Codes: R10.9 - Unspecified abdominal pain Additional Impressions: Hematuria Qualified Codes: R31.9 - Hematuria, unspecified Cystitis Referrals: Primary Care Physician 2 days Additional Instructions: You have a choice when it comes to health care, and we are glad that you chose [facility]. Hopefully, we have met your expectations on today's visit. You are welcome to return to [facility] at any time, as we are committed to meeting the health care needs of our community. Med/Other Pt SpecificInfo: No Change to Meds Scripts Sulfamethoxazole-Trimethoprim (Bactrim DS) 800-160 Mg Tab 1 TAB PO BID for Infection, #6 TAB 0 Refills Prov: King Elizalde MD 07/21/17 Disposition: 01 DISCHARGE HOME Condition: Stable King Elizalde MD Jul 21, 2017 12:51
[2017-07-21 13:02] VITALS: BP 115/66; PULSE 65; RESP 18; O2SAT 93
[2017-07-21] MEDS ORDERED: BACT800T5 PO (13:07)
== END 2017-07-21 13:31 | disposition home or self-care (01) ==
LOC: NEPD 08:40
DX: R10.9 Unspecified abdominal pain (principal); R31.9 Hematuria, unspecified; N30.90 Cystitis, unspecified without hematuria; R11.2 Nausea with vomiting, unspecified; R07.9 Chest pain, unspecified; M54.9 Dorsalgia, unspecified; R53.83 Other fatigue; E11.40 Type 2 diabetes mellitus with diabetic neuropathy, unspecified; I10 Essential (primary) hypertension
CPT/HCPCS: 80053; 81001; 83690; 85025; 87086; 96374; 96375; 99284; J2270; J2405

== ENCOUNTER 2018-03-08 19:56 | Emergency (ER) | payer OTHER ==
[~2018-03-08] VITALS: Ht 172.7 cm; Wt 98.0 kg
[~2018-03-08 19:56] MED LIST changes: +AZIT250T3 PO; +BACT800T5 PO; -FERR325T PO; +FERR325T18 PO; +LEVEMIR SQ; -MACR100C2 PO; +ONE-TAB PO; +VENTAER INH; -[UNRECOGNIZED DRUG - CODE]; -[UNRECOGNIZED DRUG - REMARK]
[2018-03-08 20:04] VITALS: BP 176/75; PULSE 56; RESP 24; O2SAT 94
[2018-03-08] MEDS ORDERED: SODIUM CHLORIDE 0.9% FLUSH 10 ML FLUSH IV FLUSH PRN (20:15)
[2018-03-08 20:18] VITALS: BP 176/75; PULSE 56; RESP 24; O2SAT 92
--- NOTE | 2018-03-08 20:21 | PD ---
HPI Chief Complaint: Fall Time Seen by Provider: 20:06 Travel History International Travel<30 days: No Contact w/Intl Traveler<30days: No Traveled to known affect area: No History of Present Illness HPI 78-year-old female brought in by ambulance from home with cervical immobilization after a reported unwitnessed fall. Apparently the patient lives with her son and while the patient's son was at dialysis the patient fell to the ground. The patient's son found her on the floor. Unknown exactly what time the patient fell, however the patient's son left for dialysis at around 1: 00 PM. Patient complains of back pain which according to EMS is chronic for her. She denies chest pain or dyspnea. She is otherwise a poor historian and does not provide any other history. She is oriented to person and place. PFSH Past Medical History Asthma: Yes Depression: Yes Cancer: Yes (RT BREAST) Cardiovascular Problems: Yes High Cholesterol: Yes Chemotherapy: No COPD: Yes Diabetes: Yes Diminished Hearing: No GERD: Yes Genitourinary: Yes (KIDNEY PROBLEM) Hypertension: Yes Insomnia: Yes Neurologic: Yes (BILAT FEET NEUROPATHY) Respiratory: Yes Immunizations Current: Yes Myocardial Infarction: Yes Sleep Apnea: Yes ?: Not Past Surgical History Gynecologic Surgery: Yes (RT MASTECTOMY-BREAST CA) Hysterectomy: Yes Mastectomy: Yes (rt) Tonsillectomy: Yes Social History Alcohol Use: No Tobacco Use: No Substance Use: No Allergies-Medications (Allergen,Severity, Reaction): Coded Allergies: No Known Allergies (Verified , 07/21/17) Reported Meds & Prescriptions Reported Meds & Active Scripts Active Macrobid (Nitrofurantoin Monoh/Nitrofur Macro) 100 Mg Cap 100 Mg PO BID 7 Days Bactrim DS (Sulfamethoxazole-Trimethoprim) 800-160 Mg Tab 1 Tab PO BID Reported Azithromycin 250 Mg Tab 250 Mg PO DIRECTED Take 2 tabs (500 mg) on day 1 then 1 tab daily x 4 days. One-A-Day Essential (Multiple Vitamin) 1 Tab 1 Tab PO DAILY Ferrous Sulfate 325 Mg (65 Mg Iron) Tablet 325 Mg PO BIDPC Levemir Inj (Insulin Detemir) 1,000 unit/ 10 ML Vial 10 Units SQ AC BREAKFAST Do not mix with any other Insulin. Ventolin Hfa 18 GM Inh (Albuterol Sulfate) 90 Mcg/Act Aer 2 Puff INH Q4H PRN Anoro Ellipta Inh (Umeclidinium/Vilanterol) 62.5-25 Mcg/Act Aero 1 Puff INH DAILY Loperamide (Loperamide HCl) 2 Mg Cap 2 Mg PO DIRECTED PRN One capsule after each loose stool. Not to exceed 8 capsules per day. Calcitriol 0.25 Mcg Cap 0.25 Mcg PO HS Fluoxetine (Fluoxetine HCl) 40 Mg Cap 40 Cap PO DAILY Gabapentin 300 Mg Cap 300 Mg PO TID Pantoprazole (Pantoprazole Sodium) 40 Mg Tab 40 Mg PO DAILY Atorvastatin (Atorvastatin Calcium) 40 Mg Tab 80 Mg PO HS Novolog Inj (Insulin Aspart) 1,000 Unit/10 Ml Vial 0 SQ DIRECTED Sliding Scale as directed. Labetalol (Labetalol HCl) 200 Mg Tab 300 Mg PO BID Captopril 100 Mg Tab 100 Mg PO TIDAC Take 1 hr before meals Amlodipine (Amlodipine Besylate) 10 Mg Tab 10 Mg PO DAILY Review of Systems Except as stated in HPI: all other systems reviewed are Neg Physical Exam Narrative GENERAL: Well-developed, well-nourished, awake, keeps eyes closed, no apparent distress. SKIN: Focused skin assessment warm/dry. HEAD: Atraumatic. Normocephalic. EYES: Pupils equal and round. No scleral icterus. No injection or drainage. ENT: Mucous membranes pink and moist. NECK: Trachea midline. No JVD. Rigid cervical collar in place. CARDIOVASCULAR: Regular rate and rhythm. RESPIRATORY: No accessory muscle use. Clear to auscultation. Breath sounds equal bilaterally. GASTROINTESTINAL: Abdomen soft, non-tender, nondistended. MUSCULOSKELETAL: No obvious deformities. No clubbing. No cyanosis. No edema. NEUROLOGICAL: Awake and alert. No obvious cranial nerve deficits. Motor grossly within normal limits. Normal speech. No focal deficits. PSYCHIATRIC: Appropriate mood and affect; insight and judgment normal. Data Data Last Documented VS Vital Signs Date Time Temp Pulse Resp B/P (MAP) Pulse Ox O2 Delivery O2 Flow Rate FiO2 03/08/18 20:18 56 24 176/75 (108) 92 Nasal Cannula 4.00 Orders Orders Electrocardiogram (03/08/18 20:09) Ammonia (03/08/18 20:09) Complete Blood Count With Diff (03/08/18 20:09) Comprehensive Metabolic Panel (03/08/18 20:09) Creatine Kinase (Cpk) (4/11/18 20:09) Prothrombin Time / Inr (Pt) (03/08/18 20:09) Act Partial Throm Time (Ptt) (03/08/18 20:09) Troponin I (03/08/18 20:09) Thyroid Stimulating Hormone (03/08/18 20:09) Urinalysis - C+S If Indicated (03/08/18 20:09) Chest, Single Ap (03/08/18 20:09) Ct Brain W/O Iv Contrast(Rout) (03/08/18 20:09) Blood Glucose (03/08/18 20:09) Ecg Monitoring (03/08/18 20:09) Iv Access Insert/Monitor (03/08/18 20:09) Oximetry (03/08/18 20:09) Sodium Chloride 0.9% Flush (Ns Flush) (03/08/18 20:15) B-Type Natriuretic Peptide (03/08/18 20:09) Ct Cerv Spine W/O Contrast (03/08/18 ) Ct Lumb Spine W/O Contrast (03/08/18 ) Ct Thor Spine W/O Contrast (03/08/18 ) Cath For Specimen (03/08/18 20:20) Ct Thorax/ Chest Wo Iv Contras (03/08/18 ) Blood Culture (03/08/18 21:20) Urine Culture (03/08/18 20:40) Ceftriaxone Inj (Rocephin Inj) (03/08/18 22:15) Sodium Chlorid 0.9% 500 Ml Inj (Ns 500 M (03/08/18 22:15) Ed Discharge Order (03/08/18 22:36) Labs Laboratory Tests Test 03/08/18 20:40 03/08/18 20:53 Urine Color YELLOW Urine Turbidity CLOUDY Urine pH 6.0 Urine Specific [place] 1.019 Urine Protein GREATER THAN 600 mg/dL Urine Glucose (UA) 150 mg/dL Urine Ketones NEG mg/dL Urine Occult Blood TRACE Urine Nitrite NEG Urine Bilirubin NEG Urine Urobilinogen LESS THAN 2.0 MG/DL Urine Leukocyte Esterase NEG Urine RBC 5 /hpf Urine WBC 14 /hpf Urine Squamous Epithelial Cells 2 /hpf Urine Amorphous Sediment OCC Urine Bacteria OCC /hpf Microscopic Urinalysis Comment CATH-CULTURE IND White Blood Count 7.9 TH/MM3 Red Blood Count 2.95 MIL/MM3 Hemoglobin 8.5 GM/DL Hematocrit 25.8 % Mean Corpuscular Volume 87.6 FL Mean Corpuscular Hemoglobin 29.0 PG Mean Corpuscular Hemoglobin Concent 33.1 % Red Cell Distribution Width 14.5 % Platelet Count 196 TH/MM3 Mean Platelet Volume 8.9 FL Neutrophils (%) (Auto) 76.1 % Lymphocytes (%) (Auto) 7.8 % Monocytes (%) (Auto) 9.7 % Eosinophils (%) (Auto) 6.3 % Basophils (%) (Auto) 0.1 % Neutrophils # (Auto) 6.0 TH/MM3 Lymphocytes # (Auto) 0.6 TH/MM3 Monocytes # (Auto) 0.8 TH/MM3 Eosinophils # (Auto) 0.5 TH/MM3 Basophils # (Auto) 0.0 TH/MM3 CBC Comment DIFF FINAL Differential Comment Prothrombin Time 11.4 SEC Prothromb Time International Ratio 1.1 RATIO Activated Partial Thromboplast Time 22.0 SEC Blood Urea Nitrogen 38 MG/DL Creatinine 4.35 MG/DL Random Glucose 119 MG/DL Total Protein 6.0 GM/DL Albumin 2.3 GM/DL Calcium Level 8.4 MG/DL Alkaline Phosphatase 114 U/L Aspartate Amino Transf (AST/SGOT) 26 U/L Alanine Aminotransferase (ALT/SGPT) 13 U/L Total Bilirubin 0.4 MG/DL Sodium Level 141 MEQ/L Potassium Level 4.1 MEQ/L Chloride Level 107 MEQ/L Carbon Dioxide Level 25.1 MEQ/L Anion Gap 9 MEQ/L Estimat Glomerular Filtration Rate 10 ML/MIN Ammonia 12 MCMOL/L Total Creatine Kinase 91 U/L Troponin I LESS THAN 0.02 NG/ML Thyroid Stimulating Hormone 3rd Gen 0.684 uIU/ML MDM Medical Decision Making Medical Screen Exam Complete: Yes Emergency Medical Condition: Yes Differential Diagnosis Fall, syncope, PE, intracranial trauma, vertebral injury, metabolic abnormality/ metabolic encephalopathy Narrative Course The patient is apparently on hospice and wanted the hospice nurses came to evaluate the patient at the bedside. States that the patient is not exactly safe to be discharged to home hospice, however can be discharged to the hospice facility after my evaluation. Vital signs reviewed. CBC is remarkable for hemoglobin 8.5, hematocrit 25.8. Stool is heme negative and brown. CMP is remarkable for BUN 38, creatinine 4.35, GFR 10. Cardiac enzymes are negative. BNP is 12. UA suggestive of UTI. The patient was given a dose of IV Rocephin. Chest x-ray: CONCLUSION: 1. Global cardiomegaly with bilateral airspace disease, possibly mild edema. Cannot exclude aspiration or pneumonia. CT head: CONCLUSION: 1. No acute intracranial abnormalities. No change from June 2017. CT cervical spine: CONCLUSION: 1. No acute findings. No significant change in 2014. Subcentimeter right lobe thyroid nodule. CT thoracic spine: CONCLUSION: 1. No acute findings. Mild degenerative disc disease. Probable hemangioma at T12. CT lumbar spine: CONCLUSION: 1. No fracture or significant spondylolisthesis. Mild to moderate degenerative change with rotatory dextroscoliosis. CT thorax: CONCLUSION: 1. Cardiomegaly with small bilateral pleural effusions and basilar dependent atelectasis. Mild groundglass opacity probably represents minimal pulmonary edema. The patient's son is at the bedside Bryan Castro. He was made aware of all findings. He states that the patient is a DNR and dialysis was discussed in the past and she does not want to ever be dialyzed. He understands that the patient's condition is guarded. I given the option of having the patient admitted to the hospital or being discharged to the hospice facility. He would really like the patient to be discharged to the hospice facility where they can provide comfort care. I think that this is reasonable. I will start her on Macrobid. Diagnosis Primary Impression: UTI (urinary tract infection) Qualified Codes: N39.0 - Urinary tract infection, site not specified Additional Impressions: Fall Qualified Codes: W19.XXXA - Unspecified fall, initial encounter Chronic kidney disease Qualified Codes: N18.9 - Chronic kidney disease, unspecified Anemia Qualified Codes: D64.9 - Anemia, unspecified Scripts Nitrofurantoin Monohydrate Macrocrystals (Macrobid) 100 Mg Cap 100 MG PO BID for Infection for 7 Days, #14 CAP 0 Refills Prov: Eric Alexander MD 03/08/18 Disposition: 51 HOSPICE/MED FACILITY Condition: Fair Eric Alexander MD Mar 08, 2018 20:21
--- NOTE | 2018-03-08 21:11 | RADRPT ---
EXAM DATE/TIME: 03/08/2018 20:26 [facility] COMPARISON: CHEST SINGLE AP, March 14, 2017, 7:57. INDICATIONS : Patient was found after fall, non responsive. MEDICAL HISTORY : Hypertension. Diabetes mellitus type II. Chronic obstructive pulmonary disease. Carcinoma, breas t. SURGICAL HISTORY : Hysterectomy. ENCOUNTER: Initial ACUITY: 1 day PAIN SCORE: Non-responsive. LOCATION: Bilateral upper chest FINDINGS: A single view of the chest demonstrates bilateral airspace disease with global cardiomegaly. Probable trace pleural fluid. No pneumothorax. CONCLUSION: 1. Global cardiomegaly with bilateral airspace disease, possibly mild edema. Cannot exclude aspiratio n or pneumonia. Ace Brown MD on March 08, 2018 at 21:07 Board Certified Radiologist. This report was verified electronically.
--- NOTE | 2018-03-08 21:30 | RADRPT ---
EXAM DATE/TIME: 03/08/2018 21:19 [facility] COMPARISON: No previous studies available for comparison. INDICATIONS : Unwitnessed fall. RADIATION DOSE: 52.26 CTDIvol (mGy) MEDICAL HISTORY : Hypertension. Carcinoma, breast. Chronic obstructive pulmonary disease.[place] SURGICAL HISTORY : Mastectomy, right. Hysterectomy. ENCOUNTER: Initial ACUITY: 1 day PAIN SCALE: 5/10 LOCATION: cranial TECHNIQUE: Multiple contiguous axial images were obtained of the head. Using automated exposure control and adj ustment of the mA and/or kV according to patient size, radiation dose was kept as low as reasonably a chievable to obtain optimal diagnostic quality images. DICOM format image data is available electro nically for review and comparison. FINDINGS: CEREBRUM: The ventricles are normal for age. No evidence of midline shift, mass lesion, hemorrhage or acute in farction. Stable small left lacunar infarct in the periventricular region. No extra-axial fluid tiffany ections are seen. POSTERIOR FOSSA: The cerebellum and brainstem are intact. The 4th ventricle is midline. The cerebellopontine angle i s unremarkable. EXTRACRANIAL: The visualized portion of the orbits is intact. SKULL: The calvaria is intact. No evidence of skull fracture. CONCLUSION: 1. No acute intracranial abnormalities. No change from June 2017. Ace Brown MD on March 08, 2018 at 21:25 Board Certified Radiologist. This report was verified electronically.
[2018-03-08 21:46] LABS: BASOPHIL % 0.1 % (0.0-2.0); EOSINOPHIL # 0.5 TH/MM3 (0-0.4); EOSINOPHIL % 6.3 % (0.0-4.0); HEMATOCRIT 25.8 % (35.0-46.0); HEMOGLOBIN 8.5 GM/DL (11.6-15.3); LYMPH % 7.8 % (9.0-44.0); LYMPHOCYTE # 0.6 TH/MM3 (1.0-4.8); MEAN CELL VOLUME 87.6 FL (80.0-100.0); MEAN CORPUSCULAR HGB CONC 33.1 % (32.0-36.0); MEAN PLATELET VOLUME 8.9 FL (7.0-11.0); MONO % 9.7 % (0.0-8.0); MONOCYTE # 0.8 TH/MM3 (0-0.9); NEUT % 76.1 % (16.0-70.0); PLATELET COUNT 196 TH/MM3 (150-450); RED BLOOD COUNT 2.95 MIL/MM3 (4.00-5.30); RED CELL DISTRIBUTION WIDTH 14.5 % (11.6-17.2); WHITE BLOOD COUNT 7.9 TH/MM3 (4.0-11.0)
--- NOTE | 2018-03-08 21:54 | RADRPT ---
EXAM DATE/TIME: 03/08/2018 21:19 [facility] COMPARISON: No previous studies available for comparison. INDICATIONS : Unwitnessed fall. RADIATION DOSE: 22.36 CTDIvol (mGy) MEDICAL HISTORY : Hypertension. Chronic obstructive pulmonary disease. Carcinoma, breast.[place] SURGICAL HISTORY : Hysterectomy. Mastectomy, right. ENCOUNTER: Initial ACUITY: 1 day PAIN SCALE: 5/10 LOCATION: neck TECHNIQUE: Volumetric scanning of the cervical spine was performed. Multiplanar reconstructions in the sagittal, coronal and oblique axial planes were performed. Using automated exposure control and adjustment o f the mA and/or kV according to patient size, radiation dose was kept as low as reasonably achievable to obtain optimal diagnostic quality images. DICOM format image data is available electronically f or review and comparison. FINDINGS: VERTEBRAE: Normal vertebral body height. ALIGNMENT: No evidence of subluxation. C2-C3: The bony spinal canal is normal in size. No evidence of disc bulge or herniation. The neural forami na are bilaterally patent. C3-C4: The bony spinal canal is normal in size. No evidence of disc bulge or herniation. The neural forami na are bilaterally patent. C4-C5: The bony spinal canal is normal in size. No evidence of disc bulge or herniation. The neural forami na are bilaterally patent. C5-C6: The bony spinal canal is normal in size. No evidence of disc bulge or herniation. The neural forami na are bilaterally patent. C6-C7: The bony spinal canal is normal in size. No evidence of disc bulge or herniation. The neural forami na are bilaterally patent. C7-T1: The bony spinal canal is normal in size. No evidence of disc bulge or herniation. The neural forami na are bilaterally patent. CONCLUSION: 1. No acute findings. No significant change in 2014. Subcentimeter right lobe thyroid nodule. Ace Brown MD on March 08, 2018 at 21:48 Board Certified Radiologist. This report was verified electronically.
[2018-03-08 21:57] LABS: ALBUMIN 2.3 GM/DL (3.4-5.0); ALT (GPT) 13 U/L (10-53); AST (GOT) 26 U/L (15-37); BICARBONATE 25.1 MEQ/L (21.0-32.0); BLOOD UREA NITROGEN 38 MG/DL (7-18); CALCIUM 8.4 MG/DL (8.5-10.1); CHLORIDE 107 MEQ/L (98-107); CREATININE 4.35 MG/DL (0.50-1.00); GLOMERULAR FILTRATION RATE 10 ML/MIN (>89); GLUCOSE,RANDOM 119 MG/DL (74-106); INTERNATIONAL NORMALIZED RATIO 1.1 RATIO; PROTHROMBIN TIME - PATIENT 11.4 SEC (9.8-11.6); SODIUM (NA) 141 MEQ/L (136-145)
[2018-03-08 21:58] LABS: AMORPHOUS SEDIMENT, URINE OCC; BACTERIA, URINE OCC /hpf; BILIRUBIN, URINE NEG (NEG); BLOOD, URINE TRACE (NEG); GLUCOSE,URINE 150 mg/dL (NEG); KETONE, URINE NEG (NEG); NITRITE,URINE NEG (NEG); SQUAMOUS EPITHELIAL CELL URINE 2 /hpf (0-5); URINE COLOR YELLOW (YELLW/STRAW); URINE LEUKOCYTE ESTERASE NEG (NEG)
--- NOTE | 2018-03-08 21:58 | RADRPT ---
EXAM DATE/TIME: 03/08/2018 21:26 [facility] COMPARISON: CHEST SINGLE AP, March 08, 2018, 20:26. INDICATIONS : Unwitnessed fall. RADIATION DOSE: 19.62 CTDIvol (mGy) MEDICAL HISTORY : Hypertension. Chronic obstructive pulmonary disease. Carcinoma, breast. SURGICAL HISTORY : Mastectomy, right. Hysterectomy. ENCOUNTER: Initial ACUITY: 1 day PAIN SCALE: 5/10 LOCATION: Bilateral chest TECHNIQUE: Volumetric scanning of the chest was performed. Using automated exposure control and adjustment of t he mA and/or kV according to patient size, radiation dose was kept as low as reasonably achievable to obtain optimal diagnostic quality images. DICOM format image data is available electronically for r eview and comparison. Follow-up recommendations for detected pulmonary nodules are based at a minimum on nodule size and pa tient risk factors according to Fleischner Society Guidelines. FINDINGS: There are small bilateral pleural effusions with basilar dependent atelectasis in lungs. There is cruz bal cardiomegaly. No significant pericardial effusion. No acute bony abnormalities. Minimal groundgla ss opacity probably represents mild edema. CONCLUSION: 1. Cardiomegaly with small bilateral pleural effusions and basilar dependent atelectasis. Mild ground glass opacity probably represents minimal pulmonary edema. Ace Brown MD on March 08, 2018 at 21:51 Board Certified Radiologist. This report was verified electronically.
[2018-03-08 22:08] LABS: ALKALINE PHOSPHATASE 114 U/L (45-117); TOTAL BILIRUBIN ADULT 0.4 MG/DL (0.2-1.0); TROPONIN I LESS THAN 0.02 NG/ML (0.02-0.05)
--- NOTE | 2018-03-08 22:08 | RADRPT ---
EXAM DATE/TIME: 03/08/2018 21:26 [facility] COMPARISON: No previous studies available for comparison. INDICATIONS : Unwitnessed fall. RADIATION DOSE: ; Reconstructed from previous dataset, no dose MEDICAL HISTORY : Hypertension. Chronic obstructive pulmonary disease. Carcinoma, breast. SURGICAL HISTORY : Hysterectomy. Mastectomy, right. ENCOUNTER: Initial ACUITY: 1 day PAIN SCALE: 5/10 LOCATION: back TECHNIQUE: Volumetric scanning of the thoracic spine was performed. Multiplanar reconstructions in the sagittal , coronal and oblique axial planes were performed. Using automated exposure control and adjustment o f the mA and/or kV according to patient size, radiation dose was kept as low as reasonably achievable to obtain optimal diagnostic quality images. DICOM format image data is available electronically f or review and comparison. FINDINGS: Bones are osteopenic. There is no acute fracture or spondylolisthesis. There are flowing anterior and lateral osteophytes on the right side. No canal stenosis. No significant foraminal stenosis. CONCLUSION: 1. No acute findings. Mild degenerative disc disease. Probable hemangioma at T12. Ace Brown MD on March 08, 2018 at 22:02 Board Certified Radiologist. This report was verified electronically.
--- NOTE | 2018-03-08 22:09 | RADRPT ---
EXAM DATE/TIME: 03/08/2018 21:30 [facility] COMPARISON: No previous studies available for comparison. INDICATIONS : Unwitnessed fall. RADIATION DOSE: 32.33 CTDIvol (mGy) MEDICAL HISTORY : Hypertension. Chronic obstructive pulmonary disease. Carcinoma, breast.[place] SURGICAL HISTORY : Mastectomy, right. Hysterectomy. ENCOUNTER: Initial ACUITY: 1 day PAIN SCALE: 5/10 LOCATION: low back TECHNIQUE: Volumetric scanning of the lumbar spine was performed. Multiplanar reconstructions in the sagittal, coronal and oblique axial planes were performed. Using automated exposure control and adjustment of the mA and/or kV according to patient size, radiation dose was kept as low as reasonably achievable t o obtain optimal diagnostic quality images. DICOM format image data is available electronically for review and comparison. FINDINGS: There is moderate to severe degenerative disc disease with a mild rotatory dextroscoliosis. There is no significant central canal stenosis. There is right-sided bony foraminal stenosis at L3-4-5. No acu te fracture. CONCLUSION: 1. No fracture or significant spondylolisthesis. Mild to moderate degenerative change with rotatory d extroscoliosis. Ace Brown MD on March 08, 2018 at 22:05 Board Certified Radiologist. This report was verified electronically.
[2018-03-08] MEDS ORDERED: cefTRIAXone INJ 1,000 MG in SODIUM CHLORIDE 0.9% INJ 100 ML IV ONE (22:15)
[2018-03-08] MEDS ORDERED: SODIUM CHLORID 0.9% 500 ML INJ 500 ML IV ONE (22:15)
[2018-03-08] MEDS ORDERED: MACR100C2 PO (22:35)
[2018-03-08 22:54] VITALS: BP 216/84; PULSE 63; RESP 18; TEMP 93.6; O2SAT 98
[2018-03-09] MEDS ORDERED: MACR100C2 PO (00:17)
--- NOTE | 2018-03-09 18:53 | EKG ---
Date Performed: 03/08/2018 Time Performed: 20:23:19 PTAGE: 78 years EKG: SINUS BRADYCARDIA SEPTAL MYOCARDIAL INFARCTION Since the previous tracing, no significant c hange noted ABNORMAL ECG PREVIOUS TRACING : 07/05/17 @ 1330 DOCTOR: Félix Aggarwal Interpretating Date/Time 03/09/2018 18:48:32
== END 2018-03-08 23:00 | disposition hospice, inpatient (51) ==
LOC: NEPC 19:56
DX: N39.0 Urinary tract infection, site not specified (principal); D63.1 Anemia in chronic kidney disease; E11.22 Type 2 diabetes mellitus with diabetic chronic kidney disease; I12.9 Hypertensive chronic kidney disease with stage 1 through stage 4 chronic kidney disease, or unspecified chronic kidney disease; N18.9 Chronic kidney disease, unspecified; E11.40 Type 2 diabetes mellitus with diabetic neuropathy, unspecified; R00.1 Bradycardia, unspecified; I25.2 Old myocardial infarction; R94.31 Abnormal electrocardiogram [ECG] [EKG]
CPT/HCPCS: 70450; 71045; 71250; 72125; 72128; 72131; 80053; 81001; 82140; 82550; 83880; 84443; 84484; 85025; 85610; 85730; 87040; 87086; 93005; 96374; 99285; J0696; J7040; P9612